=== PATIENT | male | born 1985 | race African-American/Black ===

== ENCOUNTER 2017-06-02 21:59 | Emergency (ER) | payer SELFPAY ==
[~2017-06-02] VITALS: Ht 188 cm; Wt 98.0 kg
[2017-06-02 22:13] VITALS: BP 124/82
== END 2017-06-02 23:10 | disposition home or self-care (01) ==
LOC: ER 21:59
DX: R07.89 Other chest pain (principal); R03.0 Elevated blood-pressure reading, without diagnosis of hypertension
CPT/HCPCS: 93005; 99283